=== PATIENT | male | born 1955 | race African-American/Black ===

== ENCOUNTER 2018-03-12 15:44 | Emergency (ER) | payer MEDICAID ==
[~2018-03-12] VITALS: Ht 188 cm; Wt 117.9 kg
[~2018-03-12 15:44] MED LIST: GLYB5TAB7 PO; LISI-694 PO
[2018-03-12 15:50] VITALS: BP_SYST 128
[2018-03-12] MEDS ORDERED: MORPHINE 2 MG/ML INJ. SYRINGE IVP ONE (16:00)
[2018-03-12 16:25] LABS: CALCIUM 9.4 mg/dL (8.4-11.0); CREATININE 0.56 mg/dL (0.55-1.30); POTASSIUM 4.1 mmol/L (3.5-5.1)
[2018-03-12 16:28] LABS: INR 1.1 (0.80-1.20); PROTHROMBIN TIME 10.7 SECS (9.5-12.5)
[2018-03-12 16:30] LABS: ALBUMIN 3.6 g/dL (3.4-4.8); TOTAL BILIRUBIN 0.3 mg/dL (0.0-1.0)
[2018-03-12 16:52] LABS: CKMB RELATIVE INDEX 0.3 (0.0-2.9); CREATINE KINASE MB 1.5 ng/mL (0-3.6)
[2018-03-12 17:04] LABS: MEAN CORPUSCULAR HEMOGLOBIN 29 pg (27-31); MEAN CORPUSCULAR VOLUME 91 fL (79.0-98.0); RED BLOOD CELL COUNT(AUTO) 4.71 MIL/uL (4.2-6.2); WHITE BLOOD COUNT (AUTO) 6.6 K/uL (4.8-10.8)
[2018-03-12 17:05] LABS: EOSINOPHILS # (AUTO) 0.1 K/uL (0.0-0.4); EOSINOPHILS % (AUTO) 1.2 % (0.0-4.0); LYMPHOCYTES # (AUTO) 1.5 K/uL (1.0-5.5); LYMPHOCYTES % (AUTO) 23.3 % (20.5-51.5); MEAN CORPUSCULAR HGB CONC 32 % (32-36); MONOCYTES # (AUTO) 0.4 K/uL (0.0-1.0); MONOCYTES % (AUTO) 6.6 % (1.7-9.3); NEUTROPHILS # (AUTO) 4.6 K/uL (1.8-7.7); NEUTROPHILS % (AUTO) 68.5 % (40.0-70.0); PLATELET COUNT (AUTO) 355 K/uL (130-430); RED CELL DISTRIBUTION WIDTH 14.8 % (9.0-15.0)
[2018-03-12 17:07] LABS: BASOPHILS % (AUTO) 0.4 % (0.0-2.0)
[2018-03-12] MEDS ORDERED: IBUPROFEN 800 MG TABLET GT ONE (17:30)
[2018-03-12 18:02] VITALS: BP_SYST 165
== END 2018-03-12 18:02 | disposition home or self-care (01) ==
LOC: SED 15:44
DX: J40 Bronchitis, not specified as acute or chronic (principal); R07.89 Other chest pain; R51 Headache; E11.9 Type 2 diabetes mellitus without complications; I10 Essential (primary) hypertension
CPT/HCPCS: 36415; 71045; 80053; 82550; 82553; 83880; 84145; 84484; 85025; 85610; 85730; 93005; 96374; 99285; J2270